=== PATIENT | female | born 1995 | race Caucasian/White ===

== ENCOUNTER 2020-02-02 12:36 | Emergency (ER) | payer BC, SELFPAY ==
[2020-02-02 12:44] VITALS: BP 106/70; PULSE 83; RESP 18; TEMP 36.3; O2SAT 100
--- NOTE | 2020-02-02 12:54 | ED.GENADULT ---
HPI - General Adult General Chief complaint: Unspecified Stated complaint: 2 month /lightheaded Time Seen by Provider: 02/02/20 12:44 Source: patient Mode of arrival: ambulatory Limitations: no limitations History of Present Illness HPI narrative: Patient is a 24-year-old female complaining of I am dehydrated states that she felt lightheaded earlier and that is why she thinks she is dehydrated since she has had similar episodes in the past. Patient states that she is 2-months , no complications during this , denies any vaginal bleeding, vaginal discharge or abdominal/pelvic pain. Patient has had care. Related Data Home Medications Medication Instructions Recorded Confirmed No Home Medications 02/02/20 02/02/20 Allergies Allergy/AdvReac Type Severity Reaction Status Date / Time No Known Allergies Allergy Verified 02/02/20 12:44 Review of Systems Review of Systems: All systems reviewed & are unremarkable except as noted in HPI and below Constitutional: Constitutional: Denies body ache(s), Denies chills, Denies excessive sweating, Denies fatigue, Denies fever(s), Denies headache(s), Denies lethargy, Denies malaise, Denies weakness and Denies weight loss Eyes: Eyes: Denies blurry vision, Denies change in vision and Denies loss of vision ENT: Denies dizziness, Denies ear discharge, Denies headache(s), Denies lip swelling, Denies epistaxis, Denies nasal congestion, Denies neck pain, Denies throat swelling and Denies tongue swelling Cardiovascular: Cardiovascular: Denies chest pain, Denies chest pain at rest, Denies chest pain with activity, Denies diaphoresis, Denies rapid heart rate, Denies edema, Denies irregular heart rhythm, Denies lightheadedness, Denies palpitations, Denies dyspnea and Denies dyspnea on exertion Respiratory: Respiratory: Denies chest congestion, Denies cough, Denies hemoptysis, Denies dyspnea and Denies dyspnea on exertion Gastrointestinal: Gastrointestinal: Denies abdominal pain, Denies melena, Denies hematochezia, Denies diarrhea, Denies nausea, Denies vomiting and Denies hematemesis Musculoskeletal: Musculoskeletal: Denies abnormal gait, Denies deformity, Denies joint swelling, Denies limited range of motion, Denies neck pain and Denies numbness Neurologic: Denies Abnormal speech present, Denies abnormal gait, Denies confusion, Denies dizziness, Denies headache(s), Denies focal weakness, Denies loss of vision, Denies numbness, Denies Other visual disturbances, Denies Sensory deficit (Neuro) and Denies weakness Psychiatric: Psychiatric: Denies confusion, Denies depression, Denies auditory hallucinations, Denies homicidal ideation and Denies suicidal ideation Endocrine: Endocrine: Denies cold intolerance, Denies excessive sweating, Denies fatigue, Denies heat intolerance and Denies palpitations Hematologic/Lymphatic: Hematologic/Lymphatic: Denies easy bleeding and Denies easy bruising Allergic/Immunologic: Allergic/Immunologic: Denies lip swelling, Denies throat swelling and Denies tongue swelling PMFSH Social History Social History Gender identity (if verbalized by the patient): Female Exam Const: General: cooperative, healthy appearing, comfortable, no acute distress, well developed, alert and awake; No confusion Orientation/consciousness: oriented to person, oriented to place, oriented to time, patient oriented x3 and No confusion Limitations: no limitations HENMT: Head: normal to inspection, normocephalic and atraumatic Ears: hearing grossly normal bilaterally, TM normal on the right and TM normal on the left General nose exam: Normal external nose present, Normal nares present and No nasal discharge present Face and sinus: normal facial exam Mouth: Yes Normal oral and palatal mucosa present, Yes lip normal, Yes tongue normal and Yes oropharynx normal Throat: posterior oropharynx normal, tonsils normal and uvula midline Eyes: General: appearance norm
[2020-02-02] MEDS: SODIUM CHLORIDE 0.9% IV 1,000 ML 999 ML IV CONT (12:57)
[2020-02-02 13:03] LABS: Basophils Absolute Auto 0.1 K/mm3 (0.0-0.1); Basophils Percent Auto 0.9 % (0.2-1.2); Eosinophils Absolute Auto 0.1 K/mm3 (0-0.3); Eosinophils Percent Auto 1.4 % (0-4.4); Hematocrit 37.6 % (37.0-47.0); Hemoglobin 12.8 g/dL (12.0-15.0); Immature Granulocyte Absolute 0.02 K/mm3 (0.00-0.031); Immature Granulocyte Percent A 0.3 % (0-0.5); Lymphocytes Absolute Auto 2.19 K/mm3 (0.9-3.2); Lymphocytes Percent Auto 29.6 % (18.3-44.2); Mean Corpuscular Hemoglobin 32.7 pg (26-34); Mean Corpuscular Volume 95.9 fl (80-100); Mean Platelet Volume 10.9 fl (7.4-10.4); Monocytes Absolute Auto 0.6 K/mm3 (0.1-0.6); Monocytes Percent Auto 8.3 % (2.6-8.5); Neutrophils Absolute Auto 4.4 K/mm3 (1.3-6.7); Neutrophils Percent Auto 59.5 % (45.5-73.1); Platelet Count Result 318 k/mm3 (150-375); Red Blood Count 3.92 M/mm3 (4.2-5.4); White Blood Count 7.4 K/mm3 (4.5-10.0)
[2020-02-02 13:05] LABS: Add Urine Microscopic? NO; Appearance Urine Clear (Clear); Bilirubin Urine Negative (Negative); Blood Urine Negative (Negative); Color Urine Colorless (Yellow); Glucose Urine UA Negative (Negative); Ketones Urine Negative (Negative); Leukocyte Esterase Ur Negative LEU/UL (Negative); Nitrate Urine Negative (Negative); Protein Urine Negative (Negative); Urobilinogen Urine Negative mg/dL (<2.0)
[2020-02-02 13:07] LABS: Specific Grav Ur 1.004 (1.001-1.035)
[2020-02-02 13:17] LABS: Alanine Aminotransferase 16 U/L (4-35); Albumin Level 4.5 g/dL (3.5-5.1); Alkaline Phosphatase 54 U/L (38-126); Anion Gap 7 mmol/L (8-16); Aspartate Amino Transferase 26 U/L (14-36); Bilirubin,Total 0.3 mg/dL (0.2-1.3); Blood Urea Nitrogen 9 mg/dL (7-17); Calcium 9.3 mg/dL (8.4-10.2); Carbon Dioxide 26 mmol/L (22-30); Chloride 103 mmol/L (98-107); Estimated CRCL calculation 96 ml/min; Estimated Glomerular Filt Rate > 60; Glucose 77 mg/dL (65-105); Potassium 3.7 mmol/L (3.4-5.0); Sodium 136 mmol/L (137-145)
[2020-02-02 14:12] VITALS: BP 128/74; PULSE 82; RESP 14; O2SAT 99
== END 2020-02-02 14:50 | disposition home or self-care (01) ==
PROVIDERS: Emergency Provider Emergency Medicine
DX: O99.281 Endocrine, nutritional and metabolic diseases complicating pregnancy, first trimester (principal); E86.0 Dehydration; Z3A.00 Weeks of gestation of pregnancy not specified
CPT/HCPCS: 36415; 80053; 81003; 85025; 99283; J7030

== ENCOUNTER 2020-09-25 00:01 | Inpatient (IN) | payer OTHER, BC, SELFPAY ==
[2020-09-25] VITALS (102 sets, daily range): BP systolic 82–123; BP diastolic 34–87; PULSE 62–111; RESP 16–18; TEMP 36.3–37.2; O2SAT 96–100; BMI 26.2
--- NOTE | 2020-09-25 00:01 | LDADM ---
This patient, Lisa Vivas, was admitted to Labor/Delivery/Recovery 107 on 09/25/20 at 00:01. Plans for labor, pain management and were discussed with patient. Patient/family oriented to hospital policies and general routines including ID bracelet, bed and alarms, visiting hours, pain management, procedures, bathroom and other care routines, personal items, smoking policy, room service/diet and guest tray routines, infant security routines, and visiting hours. Patient/Family are encouraged to report perceived risks to care and to ask questions if they do not understand what they are told or what they should do. See OBIX for further documentation.
--- OUTSIDE RECORDS SUMMARY | 2020-09-25 00:05 | XMS_ITS | Encounter Summary ---
:1995 Author Reason for Visit return OB visit Assessment and Plan 1. Routine care 2. Lesion of vulva ? HSV (1+2) DNA, qual, PCR, unspecified specimen 3. Vulval pain ? lidocaine HCl 2 % mucosal jelly Discussion Note: None recorded.Patient educational handouts: No information available. Plan of Care Reminders Provider Appointments Post-Op 15 Rocco Hunter DO 10/22/2020 10:00AM [facility], Unspecified 08/20/2020 Hospital (Lab) Specimen Referral None recorded. ? ? Procedures None recorded. ? ? Surgeries None recorded. ? ? Imaging None recorded. ? ? Medications Name Start Date ? ? betamethasone valerate 0.1 % topical cream ? APPLY THIN LAYER TOPICALLY TO THE AFFECTED AREA EVERY DAY lidocaine HCl 2 % mucosal jelly ? APPLY FOUR TIMES DAILY Notes: PNV Medications Administered None recorded. Vitals Weight Blood Pressure 145 lbs 105/61 mm[Hg] Results Lab Results Date Name Specimen Result Interpretation Description Value Range Status Address ? 08/20/2020 HSV (1+2) DNA,
--- OUTSIDE RECORDS SUMMARY | 2020-09-25 00:05 | XMS_ITS | Encounter Summary ---
:1995 Author Reason for Visit return OB visit Assessment and Plan 1. Routine care Discussion Note: None recorded.Patient educational handouts: No information available. Plan of Care Reminders Provider Appointments Post-Op 10/22/2020 DO Maria Isabel Moody 10:00AM Lab None ? ? recorded. Referral None ? ? recorded. Procedures None ? ? recorded. Surgeries None ? ? recorded. Imaging None ? ? recorded. Medications Name Start Date ? ? betamethasone valerate 0.1 % topical cream ? APPLY THIN LAYER TOPICALLY TO THE AFFECTED AREA EVERY DAY lidocaine HCl 2 % mucosal jelly ? APPLY FOUR TIMES DAILY Notes: PNV Medications Administered None recorded. Vitals Weight Blood Pressure 142 lbs 106/61 mm[Hg] Results Lab Results None recorded. Allergies Code Code System Name Reaction Severity Onset NKDA ? ? ? Problems Name Status Onset Date Source ? Active 02/14/2020 History Procedures Date Name Performed by ? 12/02/2016 Information not avai
--- OUTSIDE RECORDS SUMMARY | 2020-09-25 00:05 | XMS_ITS | Encounter Summary ---
[...] Administered None recorded. Vitals Weight Blood Pressure 150 lbs 120/68 mm[Hg] Results Lab Results None recorded. Allergies Code Code System Name Reaction Severity Onset NKDA ? ? ? Problems Name Status Onset Date Source ? Active 02/14/2020 History Procedures Date Name Performed by ? 12/02/2016 Information not avai
--- OUTSIDE RECORDS SUMMARY | 2020-09-25 00:05 | XMS_ITS | Encounter Summary ---
:1995 Author Reason for Visit return OB visit Assessment and Plan 1. Routine care 2. Anemia ? ferrous sulfate 325 mg (65 mg iron) tablet Discussion Note: None recorded.Patient educational handouts: No information available. Plan of Care Reminders Provider Appointments Post-Op 10/22/2020 Sharla Hunter DO 15 10:00AM Lab None ? ? recorded. Referral [...] Administered None recorded. Vitals Weight Blood Pressure 143 lbs 102/58 mm[Hg] Results Lab Results None recorded. Allergies Code Code System Name Reaction Severity Onset NKDA ? ? ? Problems Name Status Onset Date Source ? Active 02/14/2020 History Procedures Date Name Performed by ?
--- OUTSIDE RECORDS SUMMARY | 2020-09-25 00:05 | XMS_ITS ---
:1995 Author Care Team Providers Name Role Phone [facility] Primary Care Provider Unavailable Allergies Code Code System Name Reaction Severity Status Onset NKDA ? Medications Name Status Start Date Stop Date ? ? betamethasone valerate 0.1 % topical cream Active ? Not available APPLY THIN LAYER TOPICALLY TO THE AFFECTED AREA EVERY DAY Depo-Provera 150 mg/mL intramuscular suspension Completed 12/15/2016 05/31/2019 Inject 1 mL every 3 months by intramuscular route. FeroSul 325 mg (65 mg iron) tablet Completed ? 09/05/2020 TAKE 1 TABLET BY MOUTH TWICE DAILY hydrocodone 5 mg-acetaminophen 325 mg tablet Completed ? 05/31/2019 TK 1 T PO Q 6 H PRN P ibuprofen 600 mg tablet Completed ? 12/16/19 17 TK 1 T PO Q 6 H PRN P ID NOW COVID-19 Test Kit Completed ? 021 DIRECTED lidocaine HCl 2 % mucosal jelly Active ? Not available APPLY FOUR TIMES DAILY Lutera (28) 0.1 mg-20 mcg tablet Completed ? 12/15/2016 TK 1 T PO ONCE DAILY medroxyprogesterone 150 mg/mL intramuscular syringe Completed ? 04/07/2016 ADM 1 ML IM Q 3 MONTHS metoclopramide 10 mg tablet Active ? Not available TAKE 1 TABLET BY MOUTH FOUR TIMES DAILY metronidazole 500 mg tablet Completed ? 05/02 TK 2 TS PO Q 12 H nitrofurantoin macrocrystal 100 mg capsule Completed ? 05/31/2019 TK 1 C PO Q 6 H nitrofurantoin Unknown ? Not available monohydrate/macrocrystals 100 mg
--- OUTSIDE RECORDS SUMMARY | 2020-09-25 00:05 | XMS_ITS | Encounter Summary ---
:1995 Author Reason for Visit return OB visit Assessment and Plan 1. Routine care ? glucose tolerance test, ge stational, 1-hour ? CBC w/ auto diff ? HIV (1+2) Ab screen, serum Discussion Note: None recorded.Patient educational handouts: No information available. Plan of Care Reminders Provider Appointments Post-Op 15 Rocco Hunter DO 10/22/2020 10:00AM Lab Glucose [place] [facility] Tolerance Test, 07/05/2020 Hospital (Lab) Gestational, 1-Hour ? CBC W/ Auto [place] [facility] Diff 07/05/2020 Hospital (Lab) ? HIV (1+2) Ab [address] [facility] Screen, Serum 07/05/2020 [facility] (Lab) Referral None ? ? recorded. Procedures None [...]
--- OUTSIDE RECORDS SUMMARY | 2020-09-25 00:05 | XMS_ITS | Encounter Summary ---
:1995 Author Reason for Visit return OB visit Assessment and Plan 1. Routine care ? streptococcus group B, cul ture, unspecified specimen 2. Contact dermatitis ? betamethasone valerate 0.1 % topical cream Discussion Note: None recorded.Patient educational handouts: No information available. Plan of Care Reminders Provider Appointments Post-Op 15 Rocco Hunter DO 10/22/2020 10:00AM Lab Streptococcus [place] [facility] Group B, Culture, 09/05/2020 Hospital (Lab) Unspecified Specimen Referral None recorded. ? ? Procedures [...] Administered None recorded. Vitals Weight Blood Pressure 144 lbs 102/54 mm[Hg] Results Lab Results Date Name Specimen Result Interpretation Description Value Range Status Address ? 09/05/2020
--- OUTSIDE RECORDS SUMMARY | 2020-09-25 00:05 | XMS_ITS | Encounter Summary ---
:1995 Author Reason for Visit return OB visit Assessment and Plan 1. Routine care ? cervical ripening and jason ction of labor (SURG) Discussion Note: None recorded.Patient educational handouts: No information available. Plan of Care Reminders Provider Appointments Post-Op 15 Rocco Hunter DO 10/22/2020 10:00AM Lab None ? ? recorded. Referral None ? ? recorded. Procedures None ? ? recorded. Surgeries [facility] Ripening and Induction 09/25/2020 (Admittin g) of Labor (SURG) Imaging None ? ? recorded. Medications Name Start Date ? ? betamethasone valerate 0.1 % topical cream ? APPLY THIN LAYER TOPICALLY TO THE AFFECTED AREA EVERY DAY lidocaine HCl 2 % mucosal jelly ? APPLY FOUR TIMES DAILY Notes: PNV Medications Administered None recorded. Vitals Weight Blood Pressure 146 lbs 100/60 mm[Hg] Results Lab Results None recorded. Allergies Code Code System Name Reaction Severity Onset NKDA ? ? ? Problems Name Status Onset Date Source ? Active
--- OUTSIDE RECORDS SUMMARY | 2020-09-25 00:06 | XMS_ITS ---
:1995 Author Care Team Providers Name Role Phone PCP NO Primary Care Provider Unavailable PCP NO Referring Provider Unavailable Allergies Code Code System Name Reaction Severity Status Onset NKDA ? Medications Name Status Start Date Stop Date ? ? Depo-Provera 150 mg/mL intramuscular suspension Completed ? 05/31/2019 Inject 1 mL every 3 months by intramuscular route. ferrous sulfate 325 mg (65 mg iron) tablet Unknown ? Not available TK 1 T PO QD hydrocodone 5 mg-acetaminophen 325 mg tablet Completed ? 05/31/2019 TK 1 T PO Q 6 H PRN P ibuprofen 600 mg tablet Completed ? 12/16/19 TK 1 T PO Q 6 H PRN P ID NOW COVID-19 Test Kit Active ? Not danny ilable DIRECTED Lutera (28) 0.1 mg-20 mcg tablet Completed ? 12/15/2016 TK 1 T PO ONCE DAILY medroxyprogesterone 150 mg/mL intramuscular syringe Completed ? 04/07/2016 ADM 1 ML IM Q 3 MONTHS metoclopramide 10 mg tablet Completed ? 03/02 TAKE 1 TABLET BY MOUTH FOUR TIMES DAILY metronidazole 500 mg tablet Completed ? 05/02 TK 2 TS PO Q 12 H nitrofurantoin macrocrystal 100 mg capsule Completed ? 05/31/2019 TK 1 C PO Q 6 H nitrofurantoin Unknown ? Not available monohydrate/macrocrystals 100 mg capsule vits 96-ferrous fumarate 27 mg iron-folic aci d 800 mcg tablet Completed ? 04/07/2016 TK 1 T PO QD sertraline 50 mg
[2020-09-25 00:49] LABS: Basophils Absolute Auto 0.1 K/mm3 (0.0-0.1); Basophils Percent Auto 0.5 % (0.2-1.2); Eosinophils Absolute Auto 0.2 K/mm3 (0-0.3); Eosinophils Percent Auto 1.5 % (0-4.4); Hematocrit 27.3 % (37.0-47.0); Hemoglobin 8.9 g/dL (12.0-15.0); Immature Granulocyte Absolute 0.08 K/mm3 (0.00-0.031); Immature Granulocyte Percent A 0.7 % (0-0.5); Lymphocytes Absolute Auto 2.65 K/mm3 (0.9-3.2); Lymphocytes Percent Auto 22.7 % (18.3-44.2); Mean Corpuscular HGB Conc 32.6 g/dl (32-36); Mean Corpuscular Hemoglobin 29.6 pg (26-34); Mean Corpuscular Volume 90.7 fl (80-100); Mean Platelet Volume 11.6 fl (7.4-10.4); Monocytes Absolute Auto 0.9 K/mm3 (0.1-0.6); Monocytes Percent Auto 7.7 % (2.6-8.5); Neutrophils Absolute Auto 7.8 K/mm3 (1.3-6.7); Neutrophils Percent Auto 66.9 % (45.5-73.1); Platelet Count Result 264 k/mm3 (150-375); Red Blood Count 3.01 M/mm3 (4.2-5.4); Red Cell Distribution Width 13.3 % (11.5-14.5); White Blood Count 11.7 K/mm3 (4.5-10.0)
[2020-09-25] MEDS: DINOPROSTONE 10 MG VAG INSERT VAGINAL (00:55)
--- NOTE | 2020-09-25 09:24 | WPDANESEPP ---
Anes - Eval Pre Procedure Procedure: labor epidural Date/Time: 09/25/20 09:24 Pre Op Diagnosis: IOL Patient Data Age: 25 Gender: F Height: 1.57 m Weight: 65 kg Last Vital Signs Temp 36.3 C L 09/25/20 05:03 Pulse 83 09/25/20 05:04 Resp 16 09/25/20 05:03 BP 120/77 09/25/20 05:04 Allergies Allergy/AdvReac Type Severity Reaction Status Date / Time No Known Allergies Allergy Verified 09/21/20 14:26 Home Medications Medication Instructions Recorded Confirmed Type No Home Medications 02/02/20 09/25/20 History Laboratory Tests 09/25/20 09/25/20 09/25/20 00:22 00:22 00:22 WBC 11.7 K/mm3 H K/mm3 (4.5-10.0) RBC 3.01 M/mm3 L M/mm3 (4.2-5.4) Hgb 8.9 g/dL L D g/dL (12.0-15.0) Hct 27.3 % L % (37.0-47.0) MCV 90.7 fl fl (80-100) MCH 29.6 pg pg (26-34) MCHC 32.6 g/dl g/dl (32-36) RDW 13.3 % % (11.5-14.5) Plt Count 264 k/mm3 k/mm3 (150-375) MPV 11.6 fl H fl (7.4-10.4) Immature Gran % (Auto) 0.7 % H % (0-0.5) Neut % (Auto) 66.9 % % (45.5-73.1) Lymph % (Auto) 22.7 % % (18.3-44.2) [place] % (Auto) 7.7 % % (2.6-8.5) Eos % (Auto) 1.5 % % (0-4.4) Baso % (Auto) 0.5 % % (0.2-1.2) Lymph # (Auto) 2.65 K/mm3 K/mm3 (0.9-3.2) [place] # (Auto) 0.9 K/mm3 H K/mm3 (0.1-0.6) Eos # (Auto) 0.2 K/mm3 K/mm3 (0-0.3) Baso # (Auto) 0.1 K/mm3 K/mm3 (0.0-0.1) Abs Immat Gran (auto) 0.08 K/mm3 H K/mm3 (0.00-0.031) Absolute Neuts (auto) 7.8 K/mm3 H K/mm3 (1.3-6.7) Absolute Nucleated RBC 0.0 K/mm3 K/mm3 (0.0-0.012) Nucleated RBC % 0.0 % % (0.0-0.2) RPR Pending Blood Type B Positive Antibody Screen Negative Patient hx anesthesia problems: none Family hx anesthesia problems: none PMFSH Family History Family History Other No pertinent family history Social History Social History Smoking status: Never smoker Substance use: never Gender identity (if verbalized by the patient): Female Spiritual care concerns: No Exam Day of Procedure 09/25/20 09:24 Patient weight: overweight Heart: regular rate and rhythm Lungs: normal air movement Airway: Mallampati scale class II Neurological: alert and oriented
--- NOTE | 2020-09-25 09:25 | WPDANESEPP ---
Anes - Eval Pre Procedure Procedure: labor epidural Date/Time: 09/25/20 09:25 Pre Op Diagnosis: IOL Patient Data Age: 25 Gender: F Height: 1.57 m Weight: 65 kg Last Vital Signs Temp 36.3 C L 09/25/20 05:03 Pulse 83 09/25/20 05:04 Resp 16 09/25/20 05:03 BP 120/77 09/25/20 05:04 Allergies Allergy/AdvReac Type Severity Reaction Status Date / Time No Known Allergies Allergy Verified 09/21/20 14:26 Home Medications Medication Instructions Recorded Confirmed Type No Home Medications 02/02/20 09/25/20 History Laboratory Tests 09/25/20 09/25/20 09/25/20 00:22 00:22 00:22 WBC 11.7 K/mm3 H K/mm3 (4.5-10.0) RBC 3.01 M/mm3 L M/mm3 (4.2-5.4) Hgb 8.9 g/dL L D g/dL (12.0-15.0) Hct 27.3 % L % (37.0-47.0) MCV 90.7 fl fl (80-100) MCH 29.6 pg pg (26-34) MCHC 32.6 g/dl g/dl (32-36) RDW 13.3 % % (11.5-14.5) Plt Count 264 k/mm3 k/mm3 (150-375) MPV 11.6 fl H fl (7.4-10.4) Immature Gran % (Auto) 0.7 % H % (0-0.5) Neut % (Auto) 66.9 % % (45.5-73.1) Lymph % (Auto) 22.7 % % (18.3-44.2) Ray % (Auto) 7.7 % % (2.6-8.5) Eos % (Auto) 1.5 % % (0-4.4) Baso % (Auto) 0.5 % % (0.2-1.2) Lymph # (Auto) 2.65 K/mm3 K/mm3 (0.9-3.2) Ray # (Auto) 0.9 K/mm3 H K/mm3 (0.1-0.6) Eos # (Auto) 0.2 K/mm3 K/mm3 (0-0.3) Baso # (Auto) 0.1 K/mm3 K/mm3 (0.0-0.1) Abs Immat Gran (auto) 0.08 K/mm3 H K/mm3 (0.00-0.031) Absolute Neuts (auto) 7.8 K/mm3 H K/mm3 (1.3-6.7) Absolute Nucleated RBC 0.0 K/mm3 K/mm3 (0.0-0.012) Nucleated RBC % 0.0 % % (0.0-0.2) RPR Pending Blood Type B Positive Antibody Screen Negative Patient hx anesthesia problems: none Family hx anesthesia problems: none [facility] Family History Family History Other No pertinent family history Social History Social History Smoking status: Never smoker Substance use: never Gender identity (if verbalized by the patient): Female Spiritual care concerns: No Exam Day of Procedure 09/25/20 09:25
[2020-09-25 10:05] LABS: Rapid Plasma Reagin Non-Reactive (NonReactive)
--- NOTE | 2020-09-25 13:14 | PM.IMHP ---
H&P: HPI History of Present Illness Date/Time: 09/25/20 13:14 25yo at 39w0d here for induction of labor. Doing well, feeling some contractions. Good movement. Chief Complaint: Induction of labor Review of Systems Constitutional: Constitutional: Reports no additional constitutional complaints Cardiovascular: Cardiovascular: Reports no additional cardiovascular complaints Respiratory: Respiratory: Reports no additional respiratory complaints Gastrointestinal: Gastrointestinal: Reports no additional gastrointestinal complaints Genitourinary: Genitourinary: Reports no additional female genitourinary complaints Musculoskeletal: Musculoskeletal: Reports no additional musculoskeletal complaints Neurologic: Reports system reviewed and no additional complaints, except as documented Psychiatric: Psychiatric: Reports no additional psychiatric complaints Hematologic/Lymphatic: Hematologic/Lymphatic: Reports no additional hematologic/lymphatic complaints Allergic/Immunologic: Allergic/Immunologic: Reports no additional allergic/immunologic complaints [facility] Family History Family History Other No pertinent family history Social History Social History Smoking status: Never smoker Substance use: never Gender identity (if verbalized by the patient): Female Spiritual care concerns: No Meds Home Medications and Allergies Home Medications Medication Instructions Recorded Confirmed Type No Home Medications 02/02/20 09/25/20 History Allergies Allergy/AdvReac Type Severity Reaction Status Date / Time No Known Allergies Allergy Verified 09/21/20 14:26 Vital Signs Vital Signs - 24 hr 09/25/20 00:33 09/25/20 00:56 09/25/20 01:00 Temperature 36.7 C Pulse Rate 79 71 Respiratory Rate 16 Blood Pressure 116/63 104/64 09/25/20 01:15 09/25/20 01:30 09/25/20 01:45 Temperature Pulse Rate 83 89 94 Respiratory Rate Blood Pressure 114/72 102/65 110/68 09/25/20 02:00 09/25/20 02:15 09/25/20 02:30 Temperature Pulse Rate 76 78 73 Respiratory Rate Blood Pressure 109/65 99/59 L 111/63 09/25/20 02:45 09/25/20 05:03 09/25/20 05:04 Temperature 36.3 C L Pulse Rate 80 83 Respiratory Rate 16 Blood Pressure 112/62 120/77 09/25/20 12:52 Temperature Pulse Rate 75 Respiratory Rate Blood Pressure 114/74 Exam Const: General: cooperative, healthy appearing, comfortable, no acute distress, well developed, alert, awake and Physically active Resp: Effort & Inspection: normal respiratory effort, able to speak in complete sentences, normal respiratory pattern, no audible wheezes and no cough Cardio: Rate: regular rate GI: GI Palp: No abdominal tenderness and No Tenderness to palpation present (GI) Other: gravid Neuro: General: oriented to person, oriented to place, oriented to time and patient oriented x3 Psych: Appearance: grossly normal Mental Status: mental status grossly normal Speech and movement: Normal speech and movement present Affect: normal affect Attitude: cooperative Thought process: Normal thought process present Thought content: Yes Normal thought content present Insight: Good insight present (Psych) Judgement: Good judgement present (Psych) H&P: Results Labs Labs: Short CBC 09/25/20 Range/Units 00:22 WBC 11.7 H (4.5-10.0) K/mm3 Hgb 8.9 L D (12.0-15.0) g/dL Hct 27.3 L (37.0-47.0) % Plt Count 264 (150-375) k/mm3 Assessment and Plan Assessment and plan (1) Term : Code(s): Z34.90 - Encounter for supervision of normal , unspecified, unspecified trimester Status: Acute Assessment and Plan: Cervical ripening with cervidil followed by pitocin AROM when appropriate Pain management as requested GBS negative (2) Anemia affecting in third trimester: Cod
[2020-09-25] MEDS: LACTATED RINGERS 1,000 ML 125 ML IV CONT ×2 (13:32→13:58)
[2020-09-25] MEDS: OXYTOCIN 30 UNITS/NS 500 ML 30 UNITS/500 ML BAG 125 UNITS IV CONT ×2 (13:32→21:52)
--- NOTE | 2020-09-25 13:32 | WPDHPUPDATE1 ---
History and Physical Update Update Date/Time: 09/25/20 13:32 History and Physical has been reviewed, including an updated exam of the patient. There are NO changes in the patient's condition. Risks, benefits, and alternatives have been discussed and questions answered. Patient agrees to proceed with procedure.
[2020-09-25] MEDS: ONDANSETRON INJ 4 MG/2 ML VIAL IV PUSH (14:33)
[2020-09-25] MEDS: PHENYLEPHRINE 1,000 MCG/10 ML SYRINGE 100 MCG IV PUSH (14:33)
--- NOTE | 2020-09-25 20:31 | P.PCNOB_ITS ---
OB - Delivery Note Procedure Delivery date: 09/25/20 Procedure: Normal spontaneous vaginal delivery Intrapartal events: None Induction method: AROM, per pitocin protocol and per cervidil protocol Delivery augmentation: pitocin Delivery monitor: external FHT and external uterine Route of delivery: Laceration Description: Perineal - 1st Degree Delivery repair: vicryl (3-0) Specimen: Yes (placenta, discarded) Quantitative Blood Loss (ml): 200 Anesthesia type: General Narrative: Once she was noted to be complete and ready to push, the labor bed was broken down and legs were placed in stirrups for support. With contractions and maternal efforts, the presented in AGUSTÍN position. The head was delivered. Checked for nuchal cord, no nuchal cord noted. Gentle downward traction was applied and the anterior shoulder delivered without issues, followed by the posterior shoulder and rest of the body. was vigorous and crying, so delayed cord clamping of approximately 1 minute was performed. The cord was clamped and cut. Cord gasses collected. Placenta was delivered spontaneously. IV oxytocin administered and fundal massage applied. Exam was performed to identify any lacerations. 1st degree perineal laceration was repaired with 3-0 Vicryl. Good hemostasis noted. Patient tolerated the procedure well. All instrument and sponge counts were correct at the end of the procedure. [place] Baby Date of : 09/25/20 Time of : 20:16 Weeks of gestation at delivery: 39 Infant gender: Female Weight (pounds): 6 Weight (ounces): 11 presentation: vertex position: Right Occiput Anterior Placenta delivery description: Spontaneous cord vessel description: 3 Vessels score one minute: 9 score five minutes: 9
[2020-09-25] MEDS: BENZOCAINE 20% AER SPR (*SP) 56 GM CAN 1 SPRAY TOPICAL (21:52)
[2020-09-25] MEDS: WITCH HAZEL 40 PADS 1 PAD TOPICAL (21:52)
[2020-09-25] MEDS: IBUPROFEN 600 MG TABLET PO (22:36)
[2020-09-26] MEDS: ACETAMINOPHEN 325 MG TABLET 650 MG PO (01:40)
[2020-09-26 04:30] VITALS: BP 99/63; PULSE 69; RESP 18; TEMP 36.8; O2SAT 99
[2020-09-26 05:59] LABS: Hematocrit 28.5 % (37.0-47.0); Hemoglobin 9.2 g/dL (12.0-15.0)
[2020-09-26 08:05] VITALS: BP 92/59; PULSE 77; RESP 16; TEMP 37; O2SAT 100
[2020-09-26 09:00] VITALS: PULSE 77; RESP 16; O2SAT 100
--- NOTE | 2020-09-26 10:39 | P.PNOB_ITS ---
OB - PN: Subj Subjective Date/time seen: 09/26/20 10:39 25yo s/p on 09/25. Doing well this morning, pain is well controlled. Breast feeding without any issues. Ambulating. OB - PN: Obj Data Labs CBC & Chem 7: 09/26/20 04:39 Labs: Laboratory Results - last 24 hr 09/26/20 04:39 Hgb 9.2 L Hct 28.5 L OB - PN A/P Assessment and Plan (1) (normal spontaneous vaginal delivery): Code(s): O80 - Encounter for full-term uncomplicated delivery Status: Acute Assessment and Plan: Routine care Pain management Ok for DC home today Time Spent With Patient Time: Total time spent is greater than 50% in coordination of care (as documented) at patient's floor/unit and/or counseling patient: Exam Const: General: cooperative, healthy appearing, comfortable, no acute distress, well developed, alert, awake and Physically active Nakul entation/consciousness: oriented to person, oriented to place, oriented to time and patient oriented x3 Resp: Effort & Inspection: normal respiratory effort, able to speak in complete sentences, normal respiratory pattern, no audible wheezes and no cough Cardio: Rate: regular rate GI: GI Palp: No abdominal tenderness and Yes Soft to palpation Other: fundus firm below umbilicus Neuro: General: oriented to person, oriented to place, oriented to time and patient oriented x3 Psych: Appearance: grossly normal Mental Status: mental status grossly normal Speech and movement: Normal speech and movement present Affect: normal affect Attitude: cooperative Thought process: Normal thought process present Insight: Good insight present (Psych) Judgement: Good judgement present (Psych)
--- NOTE | 2020-09-26 10:42 | P.DS_ITS ---
DS: Admitting Diagnosis Admitting Diagnosis Induction of labor DS: Discharge Diagnosis Discharge Diagnosis (1) (normal spontaneous vaginal delivery): Code(s): O80 - Encounter for full-term uncomplicated delivery Status: Acute Assessment and Plan: Routine care Pain management Ok for DC home today OB - DS: Summary OB Procedures : None OB Procedures Intrapartum: Spontaneous Vag Delivery OB Procedures: : None Time Spent with Patient Time attestation: Total time spent providing and/or coordinating discharge services: Exam Const: General: cooperative, healthy appearing, comfortable, no acute distress, well developed, alert, awake and Physically active Orientation/consciousness: oriented to person, oriented to place, oriented to time and patient oriented x3 Resp: Effort & Inspection: normal respiratory effort, able to speak in complete sentences, normal respiratory pattern, no audible wheezes and no cough Cardio: Rate: regular rate GI: Other: fundus firm below umbilicus Neuro: General: oriented to person, oriented to place, oriented to time and patient oriented x3 Psych: Appearance: grossly normal Mental Status: mental status grossly normal Speech and movement: Normal speech and movement present Affect: normal affect Attitude: cooperative Thought process: Normal thought process present Insight: Good insight present (Psych) Judgement: Good judgement present (Psych) DS: Data Data Completed and Pending Labs on day of discharge: Labs from last 24 hours 09/26/20 04:39 Hgb 9.2 L Hct 28.5 L Discharge Plan Discharge Attending physician on discharge: Sharla Hunter Discharging Clinician: Sharla Hunter Patient Disposition: Home, Self-Care Activity: may shower, no straining, may drive after 2 weeks and pelvic rest Diet: regular Patient Instructions: Antibiotic Form Stand Alone Forms: General Discharge Information Follow-up/Referrals: Sharla Hunter DO [Physician] - Discharge Medications: New docusate sodium 100 mg Capsule 100 mg PO BID PRN (Reason: Constipation) Qty: 60 RF: 0 ibuprofen 600 mg Tablet 600 mg PO Q6H PRN (Reason: Cramping) Qty: 90 RF: 0 polysaccharide iron complex 150 mg iron Capsule 150 mg PO BIDWM Qty: 60 RF: 0 No Action No Home Medications RF: 0 Date of admission: 09/25/20 00:01 Primary Care Provider: PHYSICIAN,MARKETING INFORMATION COORDINATOR Admitting Provider: Sharla Hunter Attending physician on admission: Sharla Hunter Condition: Stable
[2020-09-26 12:30] VITALS: PULSE 77; RESP 16; O2SAT 100
[2020-09-26 16:00] VITALS: PULSE 77; RESP 16; O2SAT 100
[2020-09-26] MEDS: MEASLES,MUMPS,RUBELLA VACCINE 0.5 ML VIAL SUB-Q (18:05)
[2020-09-26] MEDS: IBUPROFEN 600 MG TABLET PO (18:05)
[2020-09-26] MEDS: TETANUS,DIPHTHERIA,AC PERTUSSIS ADULT (0.5 ML) BOOSTRIX IM (18:11)
[2020-09-26 20:05] VITALS: BP 109/66; PULSE 75; RESP 16; TEMP 36.6; O2SAT 100
[2020-09-28 10:25] VITALS: BP 97/67; PULSE 82; RESP 20; TEMP 36.6; O2SAT 99
== END 2020-09-26 21:30 | disposition home or self-care (01) | DRG 560 ==
LOC: ANHLDR 00:03 → ANHOB2 09-26 01:36
PROVIDERS: Admitting Provider Obstetrics & Gynecology; Visit Provider Obstetrics & Gynecology
DX: O99.02 Anemia complicating childbirth (principal); Z37.0 Single live birth; Z3A.39 39 weeks gestation of pregnancy; D64.9 Anemia, unspecified; O70.0 First degree perineal laceration during delivery
CPT/HCPCS: 36415; 85014; 85018; 85025; 86592; 86850; 86900; 86901; 90710; 90715; A9270; J2370; J2405; J2590; J2795; J7120

== ENCOUNTER 2024-11-08 08:48 | Outpatient (CLI) | payer OTHER, MEDICAID, SELFPAY ==
--- NOTE | ~2024-11-08 | MM_ITS ---
EXAMINATION: MM screening maranda BI w cem HISTORY: Screening TECHNIQUE: Craniocaudal and mediolateral oblique 3-D tomosynthesis images were obtained and synthetic 2-D images were generated. CAD analysis was submitted and interpreted. COMPARISON: Baseline BREAST PARENCHYMAL COMPOSITION: The breasts are extremely dense, which lowers the sensitivity of mammography. FINDINGS: There is no evidence of suspicious mass, calcification, or architectural distortion to suggest malignancy in either breast. IMPRESSION: 1. No mammographic evidence of malignancy. 2. Recommend routine screening mammography in one year. BI-RADS Category 1: Negative Reviewed, dictated and finalized at location B.
== END 2024-11-08 08:49 | disposition home or self-care (01) ==
PROVIDERS: PCP Nurse Practitioner Family; Visit Provider Nurse Practitioner Family
DX: Z12.31 Encounter for screening mammogram for malignant neoplasm of breast (principal); Z80.3 Family history of malignant neoplasm of breast
CPT/HCPCS: 77063; 77067

== ENCOUNTER 2024-12-19 18:07 | Emergency (ER) | payer OTHER, SELFPAY ==
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
[2024-12-19 18:39] VITALS: BP 108/83; PULSE 80; RESP 20; TEMP 36.7; O2SAT 100
--- OUTSIDE RECORDS SUMMARY | 2024-12-19 19:15 | XMS_ITS | Clinical Summary ---
Author Organization [facility] Address [address] [place] [address] Care Team Providers Care Wirer Passenger Car Name Role Phone Unavailable Primary Care Provider Unavailabl e Source Comments [facility],non-owned Affiliates and Associated Physician Practices is amultiple site organization consisting of ambulatory clinics and hospital sitesin [place], [place], [place] and [place]. This disclosure is being madepursuant to the Care Everywhere program and may not contain all information available regarding this patient. Last updated 17.[facility] Allergies No known active allergies Medications * Be aware that medications may not be up to date on this document. Alwaysverify current medications with the patient. 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 Gender Identity Not on file Sexual Orientation Not on file Last Filed Vital Signs Vital Sign Reading Time Taken Comments Blood Pressure 106/62 02/09/2017 6:21 PM HOME MISSION WORKER Pulse 83 02/09/2017 6:21 PM HOME MISSION WORKER Temperature 36.8 C (98.3 F) 02/09/2017 6:21 PM HOME MISSION WORKER Respiratory Rate 16 02/09/2017 6:21 PM HOME MISSION WORKER Oxygen Saturation 97% 02/09/2017 6:21 PM HOME MISSION WORKER Inhaled Oxygen Concentration - - Weight 52.2 kg (115 lb) 02/09/2017 6:21 PM HOME MISSION WORKER Height 154.9 cm (5' 1) 02/09/2017 6:21 PM HOME MISSION WORKER Body Mass Index 21.73 02/09/2017 6:21 PM HOME MISSION WORKER Plan of Treatment Health Maintenance Due Date Last Done Comments HIV SCREENING 2009 HEPATITIS C SCREENING 05/07/2012 DTAP/TDAP/TD VACCINES (1 - Tdap) 2013 HEPATITIS B VACCINE (1 of 3 - 19+ 3-dose series) 2013 HPV VACCINE (1 - 3-dose SCDM series) 2021 DEPRESSION SCREENING 03/02/2024 COVID-19 VACCINE (1 - 2023-2 5 season) 2024 INFLUENZA VACCINE (#1) 2024 ZOSTER VACCINE (1 of 2) 2044 HIB VACCINE Aged Out No longer eligi ble based on patient's age to complete this topic MENINGOCOCCAL (Group B) VACC INE SHARED DECISION-MAKING Aged Out No longer eligibl e based on patient's age to complete this topic MENINGOCOCCAL GROUPS A/C/Y/W VACCINE Aged Out No longer eligible b ased on patient's age to complete this topic PNEUMOCOCCAL VACCINE Aged Out No long er eligible based on patient's age to complete this topic Insurance [facility]
--- OUTSIDE RECORDS SUMMARY | 2024-12-19 20:23 | XMS_ITS | Clinical Summary ---
Author Organization [facility] Address [address] [place] [address] Care Team Providers Care Dredge Engineer Name Role Phone Unavailable Primary Care Provider Unavailabl e Source Comments [facility],non-owned Affiliates and Associated Physician Practices is amultiple site organization consisting of ambulatory clinics and hospital sitesin [place], [place] and [place]. This disclosure is being madepursuant to the Care Everywhere program and may not contain all information available regarding this patient. 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 Gender Identity Not on file Sexual Orientation Not on file Last Filed Vital Signs Vital Sign Reading Time Taken Comments Blood Pressure 106/62 02/09/2017 6:21 PM BILLING COORDINATOR Pulse 83 02/09/2017 6:21 PM BILLING COORDINATOR Temperature 36.8 C (98.3 F) 02/09/2017 6:21 PM BILLING COORDINATOR Respiratory Rate 16 02/09/2017 6:21 PM BILLING COORDINATOR Oxygen Saturation 97% 02/09/2017 6:21 PM BILLING COORDINATOR Inhaled Oxygen Concentration - - Weight 52.2 kg (115 lb) 02/09/2017 6:21 PM BILLING COORDINATOR Height 154.9 cm (5' 1) 02/09/2017 6:21 PM BILLING COORDINATOR Body Mass Index 21.73 02/09/2017 6:21 PM BILLING COORDINATOR Plan of Treatment Health Maintenance Due Date [...] patient's age to complete this topic Insurance [facility]
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
[2024-12-19] MEDS: LIDOCAINE 5% PATCH 1 PATCH TRANSDERM (21:11)
== END 2024-12-19 21:39 | disposition home or self-care (01) ==
PROVIDERS: Emergency Provider Student in an Organized Health Care Education/Training Program; PCP Nurse Practitioner Family
DX: S13.4XXA Sprain of ligaments of cervical spine, initial encounter (principal); V43.52XA Car driver injured in collision with other type car in traffic accident, initial encounter
CPT/HCPCS: 72125; 99284; A9270